=== PATIENT | male | born 1975 | race Caucasian/White ===

== ENCOUNTER 2021-02-26 21:46 | Emergency (ER) | payer BC, OTHER ==
[2021-02-26 21:57] VITALS: BP 155/102; PULSE 83
[2021-02-26] MEDS ORDERED: Ketorolac 60 MG/2 ML SDV IM ONE (22:10)
--- NOTE | 2021-02-26 22:15 | EDM.PDOC ---
ED HPI GENERAL MEDICAL PROBLEM - General Chief Complaint: Upper Extremity Injury/Pain Stated Complaint: SHOULDER INJURY Time Seen by Provider: 02/26/21 22:05 Source of Information: Reports: Patient, RN Notes Reviewed History Limitations: Reports: No Limitations - History of Present Illness INITIAL COMMENTS - FREE TEXT/NARRATIVE: Patient is a 45-year-old male who presents to the ER for the evaluation of his right shoulder pain. Patient notes he was lifting weights a few nights ago, and has had kind of an aching pain in his shoulder since then. Notes he has had a prior injury to this shoulder, that he has used PT for. Patient has not seen orthopedics for the shoulder injury. The patient states that there was no trauma to the shoulder. He is unsure if he has some sort of torn rotator cuff or otherwise. He has dislocated his shoulder in the past but does not feel like he dislocated it a few nights ago when it developed pain. States the pain is intermittent, seems to come and go. He did take some leftover Percocet for pain management for tonight's purposes and nothing seems to be making this much better. Primary care provider was Avel Antony however he believes he has an appoint with Dr. Luther, on his next days off for ongoing health care. Patient denies any other sick-like symptoms, fever/chills, cough/shortness of breath, nausea/vomiting/diarrhea. He denies any numbness or tingling distal to the injury, he has not lost any sort of strength, but has about half range of motion in the extremity due to pain. right shouder Pain Score (Numeric/FACES): 9 - Related Data Allergies Allergy/AdvReac Type Severity Reaction Status Date / Time No Known Allergies Allergy Verified 02/26/21 21:57 Home Meds: Home Meds oxyCODONE HCl [Oxycodone HCL] 1 tab PO Q6H PRN #20 tablet 02/26/21 [Rx] Past Medical History Musculoskeletal History: Reports: Other (See Below) Other Musculoskeletal History: previous shoulder dislocation, ?rotator cuff injury Oncologic (Cancer) History: Reports: Other (See Below) (liposarcoma of right thigh; has been cured/removed) Social & Family History - Tobacco Use Tobacco Use Status *Q: Current Some Day Tobacco User Years of Tobacco use: 5 Packs/Tins Daily: 0.5 - Recreational Drug Use Recreational Drug Use: No Review of Systems - Review of Systems Review Of Systems: Comprehensive ROS is negative, except as noted in HPI. ED EXAM, GENERAL - Physical Exam Exam: See Below Exam Limited By: No Limitations General Appearance: Alert, WD/WN, No Apparent Distress Respiratory/Chest: No Respiratory Distress, Lungs Clear, Normal Breath Sounds, No Accessory Muscle Use, Chest Non-Tender Cardiovascular: Normal Peripheral Pulses, Regular Rate, Rhythm, No Edema Extremities: Normal Inspection, Normal Capillary Refill, Limited Range of Motion (pt has a bout half ROM d/t pain in right shoulder.). No: Joint Swelling, Arm Pain Neurological: Alert, Oriented, Normal Cognition, No Motor/Sensory Deficits Psychiatric: Normal Affect, Normal Mood Skin Exam: Warm, Dry, Intact, Normal Color, No Rash Course - Vital Signs Last Recorded V/S: Last Vital Signs Temp 97.8 F 02/26/21 21:54 Pulse 83 02/26/21 21:54 Resp 17 02/26/21 21:54 BP 155/102 H 02/26/21 21:54 Pulse Ox 96 02/26/21 21:54 - Orders/Labs/Meds Orders: Active Orders 24 hr Category Date Time Status Shoulder Comp Rt [CR] Stat Exams 02/26/21 22:10 Taken DME for Discharge [COMM] Routine Oth 02/26/21 22:30 Ordered Meds: Medications Discontinued Medications Generic Name Dose Route Start Last Admin Trade Name Frankq PRN Reason Stop Dose Admin Ketorolac Tromethamine 60 mg 02/26/21 22:10 02/26/21 22:19 Ketorolac 60 Mg/2 Ml Sdv IM 02/26/21 22:11 60 mg ONETIME ONE Administration - Re-Assessments/Exams Free Text/Narrative Re-Assessment/Exam: 02/26/21 22:15 Patient presents to the ER for his right shoulder injury. We will go ahead and get baseline x-rays, and refer him to orthopedics for further imaging and/or PT referral. I have ordered 60 mg IM Toradol for pain management. 02/26/21 22:21 X-rays have been obtained, demonstrate no focal abnormalities, does not appear that it is even partially dislocated, there are no other acute fractures appreciated by myself with Dr. Martinez. We will go ahead and discharge home with conservative recommendations have him follow with Dr. Vizcaino hopefully sometime next week for ongoing management. Departure - Departure Time of Disposition: 22:22 Disposition: Home, Self-Care 01 Condition: Good Clinical Impression: Right shoulder pain Qualifiers: Chronicity: acute Qualified Code(s): M25.511 - Pain in right shoulder - Discharge Information *PRESCRIPTION DRUG MONITORING PROGRAM REVIEWED*: Yes *COPY OF PRESCRIPTION DRUG MONITORING REPORT IN PATIENT RODRICK: No Prescriptions: oxyCODONE HCl [Oxycodone HCL] 1 tab PO Q6H PRN #20 tablet PRN Reason: Pain Instructions: Shoulder Pain, [id number] Referrals: Avel Antony Jr, MD [Primary Care Provider] - Forms: ED Department Discharge Additional Instructions: You have been evaluated in the ED for your right shoulder pain. Your x-ray demonstrated no acute fracture or other bony abnormalities. Please use ice as tolerated to the affected area. You may elevate the affected area to provide further relief from swelling. You were provided with a sling, to provide immobilization of the joint, to prevent further injury to the shoulder. You will need to take your arm out of the sling multiple times a day, and do circular range of motion exercises, to prevent frozen shoulder. You may also do further passive range of motion exercises like the wall crawl in order to prevent frozen shoulder. You may take Tylenol 500 mg or ibuprofen 600mg q6 hrs for pain relief. Please do so until you have a tolerable level of pain with activity. Do not exceed 4000mg Tylenol, Do not exceed 3200mg ibuprofen in a 24 hour time period. You were given a prescription for a strong pain medication, oxycodone 10mg, please take 1 tab every 6 hours as needed for pain not relieved by Tylenol or ibuprofen alone. These medications can be addictive, so please take as few as possible to achieve adequate pain control. These meds can also be quite constipating, recommend that you increase your oral fluid intake and take a stool softener like MiraLAX while taking these medications. This medication was electronically sent to the [facility] located [facility]. Please call Ortho for follow-up and further evaluation Dr. Vizcaino is our orthopedic surgeon, his office number is [phone]. Please call and set up an appointment as soon as possible for further management. Please return to ED if your symptoms should change or worsen. Sepsis Event Note (ED) - Evaluation Sepsis Screening Result: No Definite Risk - Focused Exam Vital Signs: Vital Signs Temp Pulse Resp BP Pulse Ox 02/26/21 21:54 97.8 F 83 17 155/102 H 96 - My Orders Last 24 Hours: My Active Orders 02/26/21 22:10 Shoulder Comp Rt [CR] Stat 02/26/21 22:30 DME for Discharge [COMM] Routine - Assessment/Plan Last 24 Hours: My Active Orders 02/26/21 22:10 Shoulder Comp Rt [CR] Stat 02/26/21 22:30 DME for Discharge [COMM] Routine
[2021-02-26] MEDS ORDERED: Acetaminophen/oxyCODONE 325-5 MG Tab PO ONE (22:41)
--- NOTE | 2021-02-27 08:04 | CR ---
Right shoulder: 3 views of the right shoulder were obtained. Comparison: No prior shoulder study is available. Acromioclavicular joint and glenohumeral joint appear within normal limits. No acute fracture, dislocation or other bony abnormality is appreciated. No abnormal soft tissue calcifications are seen. Impression: 1. No abnormality is appreciated on 3 view right shoulder study. Diagnostic code #1
== END 2021-02-26 22:47 | disposition home or self-care (01) ==
LOC: JD.ED 21:46
DX: M25.511 Pain in right shoulder (principal); Z72.0 Tobacco use; X50.1XXA Overexertion from prolonged static or awkward postures, initial encounter
CPT/HCPCS: 73030; 96372; 99283; A9270; J1885